=== PATIENT | female | born 1965 | race Hispanic/Latino ===

== ENCOUNTER → 2018-09-07 | Outpatient (CLI) | payer MEDICARE, MEDICAID ==
--- NOTE | 2018-09-07 17:36 | RAD ---
EXAM DESCRIPTION: Chest,2 Views CLINICAL HISTORY: COUGH COMPARISON: None TECHNIQUE: PA/lateral FINDINGS: Mild elevation of the left hemidiaphragm. Heart size is normal with normal pulmonary vascularity. No pleural effusion or pneumothorax. Patchy infiltrate in the lingula and/or left lower lobe above the diaphragm. Lesser discoid atelectasis in the right lung base. Lateral view shows intact sternum and T-spine. IMPRESSION: Minimal infiltrate or partial volume loss in left lung base. Electronically signed by: Timbo Oliva MD 09/07/2018 5:33 PM CDT
== END ==
LOC: RAD 15:10
PROVIDERS: ATTEND Nurse Practitioner
DX: Z00.00 Encounter for general adult medical examination without abnormal findings (principal); R07.9 Chest pain, unspecified; R05 Cough

== ENCOUNTER → 2018-09-08 | Outpatient (CLI) | payer MEDICARE, MEDICAID | LOC: LAB.O 09:34 | PROVIDERS: ATTEND Internal Medicine | DX: Z00.00 Encounter for general adult medical examination without abnormal findings (principal); R07.9 Chest pain, unspecified; R05 Cough ==

== ENCOUNTER → 2018-12-30 | Outpatient (CLI) | payer MEDICARE, MEDICAID ==
--- NOTE | 2018-12-31 11:01 | MAM ---
EXAM DESCRIPTION: 3D Screening BILATERAL : Digital Mammography. CLINICAL HISTORY: 53 years Female Annual screening . No complaints. No personal or family history of breast cancer. Childbirth. Postmenopausal 10+ years. No HRT. Lifetime risk of developing breast cancer (Tyrer-Cuzick model)(%): 4.7. COMPARISON: Baseline study at this facility.. No prior reports available. TECHNIQUE: Bilateral CC and MLO projection full-field images, digital tomosynthesis mammographic technique. Bilateral digital 2-D full-field MLO images. CAD not available for tomosynthesis or 2-D images. FINDINGS: The breast parenchymal density pattern is: Heterogeneously dense breast tissue, which may obscure small masses. No skin thickening or nipple retraction. The fibroglandular tissue in the middle third of the left breast is concentrated in the upper outer quadrant. The fibroglandular tissue in the middle third of the right breast is more diffuse in both upper quadrants. No focal, stellate mass or density, focal asymmetry , and no suspicious microcalcifications bilaterally. IMPRESSION: Benign exam. BIRAD CATEGORY: 2 BENIGN FINDINGS. RECOMMENDATIONS: FOLLOW UP: Routine digital bilateral mammographic screening, one year interval from December 2018. Written communication explaining the IMPRESSION and follow-up, will be mailed to the patient and referring health care provider. According to the [employer], yearly mammograms are recommended starting at age 40 and continuing as long as a woman is in good health. Any breast change noted on a breast self-exam should be reported promptly to the patient's healthcare provider. Breast MRI is recommended for women with an approximately 20-25% or greater lifetime risk of breast cancer, including women with a strong family history of breast or ovarian cancer and women who have been treated for Hodgkin's disease. A negative mammographic report should not delay tissue diagnosis in patients with significant clinical history or physical findings. Extremely dense breast tissue limits the sensitivity of digital mammography. Electronically signed by: Prakash Clarke MD 12/31/2018 10:58 AM CDT
== END ==
LOC: MAMMO 11:31
PROVIDERS: ATTEND Internal Medicine
DX: Z12.31 Encounter for screening mammogram for malignant neoplasm of breast (principal)

== ENCOUNTER 2020-03-21 16:12 | Emergency (ER) | payer MEDICARE, MEDICAID ==
[2020-03-21] MEDS ORDERED: ONDANSETRON INJ 4 MG/2 ML VIAL IV ONE ×2 (16:27→17:17)
--- NOTE | 2020-03-21 16:30 | ED.PDOC ---
History of Present Illness - General Time Seen by Provider: 03/21/20 16:26 Source: patient, RN notes reviewed, Vital Signs reviewed Additional Information: 55-year-old female, with history of anxiety and depression presents presents to the ER because of nausea vomiting, and not feeling well. Patient stated that on Thursday she was having some cough and some general malaise, she went to [facility] they diagnosed her with bronchitis she was discharged home with Zithromax. And then last night patient started not feeling well was very nauseated and she made herself throw up. Was tested for COVID but the results were not given to her Walking with a steady gait does not be in any distress having some chest wall pain after vomiting - History of Present Illness Timing/Duration: other - yesterday Improving Factors: nothing Worsening Factors: nothing Associated Symptoms: chest pain Allergies/Adverse Reactions: Allergies NO KNOWN ALLERGY Allergy (Verified 03/21/20 16:37) Home Medications: Ambulatory Orders LORazepam [Ativan] 1 mg PO DAILY #7 tab 03/21/20 Ondansetron Odt [Zofran ODT] 4 mg PO Q6HR #20 tab 03/21/20 Review of Systems - Review of Systems Constitutional: States: no symptoms reported EENTM: States: no symptoms reported Respiratory: States: no symptoms reported Cardiology: States: chest pain Gastrointestinal/Abdominal: States: nausea, vomiting Genitourinary: States: no symptoms reported Musculoskeletal: States: no symptoms reported Skin: States: no symptoms reported Neurological: States: no symptoms reported Endocrine: States: no symptoms reported Hematologic/Lymphatic: States: no symptoms reported Family Medical History - Family History Mother Family History: Unknown Physical Exam - Physical Exam General Appearance: Well Developed, Well Groomed, Well Hydrated, Well Nourished Eye Exam: bilateral normal Ears, Nose, Throat: hearing grossly normal, normal ENT inspection, normal pharynx Neck: non-tender, full range of motion, supple, normal inspection Respiratory: chest non-tender, lungs clear, normal breath sounds, no respiratory distress, no accessory muscle use Cardiovascular/Chest: normal peripheral pulses, regular rate, rhythm, no edema, no gallop, no JVD, no murmur Peripheral Pulses: radial,right: 2+, radial,left: 2+ Gastrointestinal/Abdominal: normal bowel sounds, non tender, soft, no organomegaly, no pulsatile mass Back Exam: normal inspection, no CVA tenderness, no vertebral tenderness Extremity: normal range of motion, non-tender, normal inspection, no pedal edema, no calf tenderness Neurologic: tape stringer II-XII nml as tested, no motor/sensory deficits, alert, normal mood/affect, oriented x 3 Skin Exam: normal color Lymphatic: no adenopathy Progress - Progress Progress: No history of anxiety presented with nausea and vomiting, patient was put on Z- Phu because she was diagnosed with bronchitis on Thursday at [place]. Patient has not had any vomiting here denies any abdominal pain did mention having some chest discomfort after vomiting. Patient also endorsing that she has been feeling more anxious in the past few days and even today for like she was having a panic attack. Patient usually takes 75 mg of hydroxyzine at home, patient EKG is a sinus tachycardia troponins were negative normal lipase, evidence of pneumonia or any other abnormalities, no evidence of UTI, patient is able to tolerate by mouth abdomen is no longer nauseated, but she is crying stating that she feels anxious and the hydroxyzine is not working so I decided to give her Ativan and will give her Ativan and now for the next 3 days and patient stated that she does have an appoint with psychiatry soon, told her not to mix the hydroxyzine with the Ativan and only take the Ativan before going to bed Return To the ER immediately severe nausea vomiting abdominal pain right lower quadrant pain diarrhea bloody stools unwanted weight loss decreased oral intake unable to morning fluids down blood in the urine peripheral urination or any other concern 03/21/20 18:14 Departure - Departure Clinical Impression: Nausea & vomiting Qualifiers: Vomiting type: unspecified Vomiting Intractability: non-intractable Qualified Code(s): R11.2 - Nausea with vomiting, unspecified Disposition: Discharge to Home or Self Care Condition: Good Instructions: Nausea and Vomiting, Adult (DC) Diet: full liquid diet Referrals: GEE SONG [Primary Care Provider] - 1-2 Weeks Prescriptions: Ondansetron Odt [Zofran ODT] 4 mg PO Q6HR #20 tab LORazepam [Ativan] 1 mg PO DAILY #7 tab Home Medications: Ambulatory Orders LORazepam [Ativan] 1 mg PO DAILY #7 tab 03/21/20 Ondansetron Odt [Zofran ODT] 4 mg PO Q6HR #20 tab 03/21/20 Additional Instructions: Return To the ER immediately severe nausea vomiting abdominal pain right lower quadrant pain diarrhea bloody stools unwanted weight loss decreased oral intake unable to morning fluids down blood in the urine peripheral urination or any other concern
[2020-03-21 16:39] VITALS: TEMP 98.3
--- NOTE | 2020-03-21 16:59 | RAD ---
EXAM DESCRIPTION: Chest,1 View CLINICAL HISTORY: 55 years Female chest pain COMPARISON: 09/07/2018. FINDINGS: The cardiomediastinal silhouette appears unremarkable. No consolidating infiltrates or pleural effusions. No pneumothorax. IMPRESSION: No acute abnormality is identified. Electronically signed by: Christopher Martin MD 03/21/2020 4:57 PM CDT
[2020-03-21] MEDS ORDERED: hydrOXYzine PAMOATE 25 MG CAP PO ONE (17:37)
[2020-03-21] MEDS ORDERED: LORazepam 1 MG TAB PO ONE (18:14)
[2020-03-21] MEDS ORDERED: LORazepam 0.5 MG TAB ONE (18:23)
[2020-03-21 18:36] VITALS: BP 132/93; O2SAT 93
== END 2020-03-21 18:30 | disposition home or self-care (01) ==
LOC: ER 16:12
DX: R11.2 Nausea with vomiting, unspecified (principal); R05 Cough; F41.9 Anxiety disorder, unspecified; F32.9 Major depressive disorder, single episode, unspecified
CPT/HCPCS: 36415; 71045; 80053; 81001; 84443; 84484; 85025; 93005; J2405

== ENCOUNTER 2020-07-06 05:32 | Day surgery (SDC) | payer MEDICARE, MEDICAID ==
[2020-07-06] MEDS ORDERED: LACTATED RINGERS 1,000 ML ONE (06:30)
[2020-07-06] MEDS ORDERED: PROPOFOL 200 MG/20 ML VIAL IV ONE (07:00)
[2020-07-06] MEDS ORDERED: LIDOCAINE 1% 10 ML VIAL INJ ONE (07:00)
[2020-07-06] MEDS ORDERED: LACTATED RINGERS 1,000 ML IVS ONE (08:10)
[2020-07-06] MEDS ORDERED: fentaNYL CITRATE INJ 50 MCG/ML 2 ML AMP ONE (08:52)
--- NOTE | 2020-07-06 10:11 | OP ---
DATE OF PROCEDURE: 07/06/20 PREOPERATIVE DIAGNOSIS: 1. Epigastric pain. 2. Screening colonoscopy. POSTOPERATIVE DIAGNOSIS: 1. Normal EGD. 2. Colonoscopy with very poor prep, needing a repeat exam. One polyp was seen, but unable to be identified again after multiple passes due to inability to aspirate the thick vegetable matter, etc., in the colon. PROCEDURE: 1. EGD. 2. Colonoscopy. SURGEON: Luciano Abreu MD COMPLICATIONS: None. PLAN: Discharge. We will followup and discuss an additional colonoscopy. PROCEDURE: General anesthesia was induced in the lateral position. Bite block in place. The upper endoscope was inserted without difficulty and passed through the esophagus, into the stomach and into the third portion of the duodenum without difficulty. Upon withdrawal, all mucosal surfaces appeared normal. There may have been a slight mild gastritis, but nothing significant. Upon further withdrawal and examination, there was no hiatal hernia. The body appeared normal. Upon further withdrawal, the GE junction was normal as was the esophagus. The patient was then repositioned. In lateral position, digital rectal exam was normal. The colonoscope was inserted. Upon insertion, multiple formed pieces of vegetable type matter were seen along with some liquid, but we were able to pass all the way to the cecum as identified by the ileocecal valve. Again, formed to fluid in the cecum, so we were unable to aspirate it out completely as it continually clogged the channel, but we were definitely in the cecum. Upon withdrawal, lots of feces were seen. We tried to irrigate, but the dependent portion was unable to be examined adequately. Some small polyps may have been missed. At this point, we were thinking of an interval followup of maybe 2 or 3 years, but when we got down to the sigmoid around 40 cm, a polyp was seen. This was approximately 5 to 5.5 mm polyp that we intended to take with the snare. As we turned the scope to get good position, we lost the polyp and there was still a lot of stool in this area and we were unable to find it again even with turning the patient and coming back and forth again at least 3 times with the scope and were unable to identify that polyp. I tried to irrigate and aspirate the stool in that area, but given the patient's poor prep, we will not investigate further and will have to re-prep her to get an adequate scope. The remainder of the exam was normal. The patient tolerated the procedure and was taken to Recovery to be discharged. I have explained this to her. #[id number] cc: Jaycee Jimenez MD MTDD
[2020-07-06 10:35] VITALS: BP 134/92; TEMP 96.5; O2SAT 97
== END 2020-07-06 10:28 | disposition home or self-care (01) ==
LOC: AMB 05:32
PROVIDERS: ATTEND Surgery
DX: Z12.11 Encounter for screening for malignant neoplasm of colon (principal); R10.13 Epigastric pain; K63.5 Polyp of colon
CPT/HCPCS: 00813; 43239; 45378; J3010; J3490; J7120